=== PATIENT | female | born 1980 | race Caucasian/White ===

== ENCOUNTER 2016-10-26 04:50 | Emergency (ER) | payer OTHER ==
[~2016-10-26] VITALS: Ht 160 cm; Wt 122.6 kg
[~2016-10-26 04:50] MED LIST: ACYCLOVIR200 MG PO; AMMONIUM LACTATE12 % EX; AMOXICILLIN875 MG OR; AMPICILLIN500 MG PO; ANUCORT-HC25 MG RE; APRI PO; ARIPIPRAZOLE5 MG PO; B6 NATURAL100 MG PO; BP MED; BUPROPION HCL150 M2 OR; BUPROPION150 M3 PO; BUPROPION150 MG PO; BUSPIRONE5 MG PO; CELEXA40 M1 PO; CLARITHROMYC500 M2 PO; COMPAZINE10 MG OR; FOLIC ACID PO; FUROSEMIDE20 MG PO; HYDROCHLORO25 MG/TAB PO; IBUPROFEN600 MG OR; INDOMETHACIN50 MG PO; K-TAB20 MEQ PO; LEVOTHYROXIN100 MC1 PO; LEVOTHYROXIN125 MC1 OR; LEVOTHYROXIN125 MCG PO; LEVOTHYROXIN50 MC1 PO; LISINOP/HCTZ1 TA1 PO; LISINOPRIL20 MG PO; MAGNESIUM 250 M1 TAB PO; METFORMIN500 M1 PO; METFORMIN500 MG PO; MINIPRESS2 M1 PO; MIRCETTE28 DAY PO; OCELLA1 TAB PO; PENICILLN VK500 M1 OR; PERCOCET 5/325M1 TAB PO; PREVACID30 M2 PO; PREVACID30 M3 PO; PRILOSEC20 MG PO; PRILOSEC40 MG PO; RESTASIS0.05 % OP; SERTRALINE50 MG PO; SYSTANE BAL OP; TEMAZEPAM30 MG PO; TOPAMAX50 MG PO; TOPIRAMATE50 MG PO; ULTRAM50 M1 PO; ULTRAM50 MG OR; VITAMIN D2000 UNI1 OR; VITAMIN D35000 UNIT PO; ZOFRAN ODT4 MG PO; ZOFRAN8 MG OR
[2016-10-26 05:15] VITALS: BP 117/74
== END 2016-10-26 05:15 | disposition home or self-care (01) | DRG 156 ==
LOC: ED 04:50
DX: T16.1XXA Foreign body in right ear, initial encounter (principal); I10 Essential (primary) hypertension; E11.9 Type 2 diabetes mellitus without complications; E03.9 Hypothyroidism, unspecified; X58.XXXA Exposure to other specified factors, initial encounter

== ENCOUNTER 2017-02-19 14:23 | Emergency (ER) | payer OTHER ==
[~2017-02-19] VITALS: Ht 160 cm; Wt 144.0 kg
[~2017-02-19 14:23] MED LIST changes: +HM OMEPRAZOLE20 MG PO
[2017-02-19] MEDS ORDERED: BACTRIM DS1 TAB PO (14:39)
[2017-02-19] MEDS ORDERED: LEVOTHYROXIN150 MC1 PO (14:46)
[2017-02-19] MEDS ORDERED: INDOCIN50 MG/CAP PO (14:48)
[2017-02-19] MEDS ORDERED: CARAFATE1 GM PO (14:49)
[2017-02-19 14:50] VITALS: BP 133/88
[2017-02-19] MEDS ORDERED: VYVANSE60 MG PO (14:51)
[2017-02-19] MEDS ORDERED: ROPINIROLE HCL1 MG PO (15:04)
[2017-02-19] MEDS ORDERED: K-DUR/KLOR-CON20 MEQ PO (15:06)
[2017-02-19] MEDS ORDERED: PROPRANOLOL HCL80 M1 PO (15:07)
[2017-02-19] MEDS ORDERED: LISINOP/HCTZ1 TA1 PO (15:08)
[2017-02-19] MEDS ORDERED: [UNRECOGNIZED DRUG - OTHER] PO (15:08)
== END 2017-02-19 14:50 | disposition home or self-care (01) | DRG 603 ==
LOC: ED 14:23
PROC: 0H9DXZX Drainage of Right Lower Arm Skin, External Approach, Diagnostic (ICD-10-PCS; principal; 2017-02-19)
DX: L02.413 Cutaneous abscess of right upper limb (principal)

== ENCOUNTER → 2017-12-24 | Outpatient (REF) | payer MEDICARE, MEDICAID ==
[~2017-12-24] MED LIST changes: +BACTRIM DS1 TAB PO; +CARAFATE1 GM PO; +FIORICET 50-3001 CAP; +HYDROCODONE/ACE1 TAB PO; +IMITREX50 MG PO; +INDOCIN50 MG/CAP PO; +K-DUR/KLOR-CON20 MEQ PO; +LATUDA60 MG; +LEVOTHYROXIN150 MC1 PO; +PROPRANOLOL HCL80 M1 PO; +ROPINIROLE HCL1 MG PO; +TOPAMAX100 M1; +VYVANSE60 MG PO; +[UNRECOGNIZED DRUG - OTHER] PO
[2017-12-24 10:09] LABS: ANION GAP 13 (6-22 (CALC)); BUN 22 mg/dL (7-17); BUN/CREATININE RATIO 21 (12-20 (CALC)); CARBON DIOXIDE 25 mmol/l (22-30); CHLORIDE 108 mmol/l (95-108); GFR > 60 ML/MIN (>=60 (CALC)); GFR FOR AFR.AMER. > 60 ML/MIN (>=60 (CALC)); POTASSIUM 4.5 mmol/l (3.5-5.1); SODIUM 141 mmol/l (137-146)
== END | disposition home or self-care (01) ==
LOC: LAB 09:20
DX: E11.9 Type 2 diabetes mellitus without complications (principal); Z01.812 Encounter for preprocedural laboratory examination; K21.9 Gastro-esophageal reflux disease without esophagitis; Z11.59 Encounter for screening for other viral diseases; Z13.9 Encounter for screening, unspecified; Z98.84 Bariatric surgery status; Z79.899 Other long term (current) drug therapy

== ENCOUNTER 2018-11-19 17:05 | Emergency (ER) | payer MEDICARE, MEDICAID ==
[~2018-11-19] VITALS: Ht 160 cm; Wt 160.0 kg
[~2018-11-19 17:05] MED LIST changes: +INDOCIN25 MG PO; -INDOCIN50 MG/CAP PO; -LATUDA60 MG; +LATUDA60 MG PO
[2018-11-19] MEDS ORDERED: GABAPENTIN100 MG PO (18:06)
[2018-11-19] MEDS ORDERED: VOLTAREN - GENE75 MG PO (20:10)
[2018-11-19 20:18] VITALS: BP 140/79
== END 2018-11-19 20:28 | disposition home or self-care (01) ==
LOC: ED 17:05
DX: S39.012A Strain of muscle, fascia and tendon of lower back, initial encounter (principal); S80.212A Abrasion, left knee, initial encounter; S70.01XA Contusion of right hip, initial encounter; I10 Essential (primary) hypertension; E11.42 Type 2 diabetes mellitus with diabetic polyneuropathy; E03.9 Hypothyroidism, unspecified; W10.9XXA Fall (on) (from) unspecified stairs and steps, initial encounter; Y92.009 Unspecified place in unspecified non-institutional (private) residence as the place of occurrence of the external cause; Z79.84 Long term (current) use of oral hypoglycemic drugs

== ENCOUNTER 2019-12-27 18:21 | Observation (INO) | payer MEDICARE, MEDICAID ==
[~2019-12-27] VITALS: Ht 162.6 cm; Wt 160.0 kg
[~2019-12-27 18:21] MED LIST changes: +GABAPENTIN100 MG PO; +VOLTAREN - GENE75 MG PO
--- NOTE | 2019-12-27 18:22 | NUR ---
PT TO ROOM VIA WC IN NO ACUTE DISTRESS, TRANSFERED SELF ONTO STRETCHER
--- NOTE | 2019-12-27 18:40 | NUR ---
INITIATED IV, EKG COMPLETED AND PT UPDATED ON TESTS ADN POC. SKIN PWD. PT C/O PAIN AND SWELLING TO LT FOOT. PT DENIES INJURY AND PEDAL PULSES PRESENT BILAT. NO REDNESS OR DISCOLORATION. BILAT FEET WARM TO TOUCH. BILAT PEDAL PULSES MARKED.
--- NOTE | 2019-12-27 18:55 | NUR ---
REPORT TO DHARA MOLINA RN. UPDATED THAT MED REC HAS NOT BEEN COMPLETED.
[2019-12-27 19:13] LABS: HEMATOCRIT 33.2 % (37.0-47.0); HEMOGLOBIN 10.6 g/dl (12.0-16.0); IMMATURE GRANULOCYTES 0.5 % (0.0-5.0); MEAN CORPUSCULAR HGB 28.2 pG CALC (26.0-32.0); MEAN CORPUSCULAR HGB CONC 31.9 g/dL CAL (32.0-36.0); NEUT# 5.88 thou/uL (2.00-7.15); RED BLOOD COUNT 3.76 mill/uL (4.20-5.60); RED CELL DISTRI WIDTH 16.5 % (11.5-15.5)
[2019-12-27] MEDS ORDERED: LIPITOR20 M1 PO (19:13)
[2019-12-27] MEDS ORDERED: TYLENOL # 31 TA1 PO (19:15)
[2019-12-27 19:16] LABS: MEAN CELL VOLUME 88.3 fL CALC (80.0-100.0)
[2019-12-27] MEDS ORDERED: FLUCONAZOLE150 MG PO (19:16)
[2019-12-27] MEDS ORDERED: PROTONIX40 M2 PO (19:17)
[2019-12-27] MEDS ORDERED: OZEMPIC2 MG/1.5 M IM (19:19)
[2019-12-27 19:38] LABS: ALBUMIN 4.1 g/dL (3.2-5.0); ANION GAP 12 (6-22 (CALC)); BUN 16 mg/dL (7-17); BUN/CREATININE RATIO 15 (12-20 (CALC)); CARBON DIOXIDE 24 mmol/l (22-30); CHLORIDE 107 mmol/l (95-108); CREATININE 1.1 mg/dL (0.5-1.0); GFR 55 ML/MIN (>=60 (CALC)); GFR FOR AFR.AMER. > 60 ML/MIN (>=60 (CALC)); POTASSIUM 4.1 mmol/l (3.5-5.1); SGOT/AST 24 u/l (14-36); SODIUM 138 mmol/l (137-146)
[2019-12-27 19:39] LABS: BILIRUBIN, TOTAL 0.5 mg/dL (0.0-1.4)
[2019-12-27 19:40] LABS: ALKALINE PHOSPHATASE 56 u/l (38-126)
--- NOTE | 2019-12-27 19:42 | NUR ---
PT. STATES HER CP CONT. AT A 5 ON A SCAL OF 1-10.
--- NOTE | 2019-12-27 20:08 | NUR ---
MD IN ROOM TO MAKE PT. AWARE OF ADMISSION.
[2019-12-27 20:37] LABS: TSH, 3RD GENERATION 9.01 uIU/mL (0.47 - 4.68)
[2019-12-27 20:44] LABS: URINE BILIRUBIN - DIPSTICK NEGATIVE (NEGATIVE); URINE BLOOD DIPSTICK NEGATIVE (NEGATIVE); URINE COLOR YELLOW; URINE GLUCOSE - DIPSTICK NEGATIVE (NEGATIVE); URINE KETONE TRACE mg/dL (NEGATIVE); URINE LEUK ESTERASE NEGATIVE (NEGATIVE); URINE NITRITE - DIPSTICK NEGATIVE (Negative); URINE PH 6.5 (4.5-8.0); URINE PROTEIN - DIPSTICK NEGATIVE (NEG-TRACE); URINE UROBILINOGEN - DIPSTICK 0.2 E.U./dL (0.2)
--- NOTE | 2019-12-27 21:28 | NUR ---
Admission Note Report Given to: NEGAR HARRY Transported by: Wheelchair X Stretcher Transported with: C Nurse Transporter X Patent IV O2 X Commercial Account Officer Location: X ICU [facility]
--- NOTE | 2019-12-27 22:20 | NUR ---
PT. TAKEN TO ICU VIA STRETCHER, NO C/O AT THIS TIME.
[2019-12-27 23:00] VITALS: BP 125/66
--- NOTE | 2019-12-27 23:00 | NUR ---
- ADMISSION ASSESSMENT COMPLETED. PT. REPORTS CP IS LESS AND ONLY A 2/10 AND REPORTS IT MORE PRESSURE THAN PAIN; RELAXTION TECHNIQUES IMPLEMENTED. ORIENTED TO CALL LIGHT, ROOM, AND POC; VERBALIZES UNDERSTANING; GRINDER GEAR IN PLACE AND READING SR. VSS. PT. REPORTS SHE WEARS BIPAP AT NIGHT AND DOES NOT HAVE IT WITH HER; PT. IN AGREEMENT TO APPLY O2 FOR THE NIGHT; O2 @2LITERS/MIN PER NC; PRN SONATA GIVEN TO ASSIST WITH SLEEP; SNACK PROVIDED. ENCOURAGED TO CALL FOR ANY NEEDS.
--- NOTE | 2019-12-28 00:39 | NUR ---
PHLEBOTOMY IN AT BEDSIDE OBTAINING ORDERED TROPONIN.
--- NOTE | 2019-12-28 02:29 | NUR ---
PT. C/O RLE CRAMPING; MEDICATED WITH ORDERED PRN TYLENOL AND ORANGE JUICE PROVIDED. WILL REASSESS. PEDAL PULSES PRESENT.
[2019-12-28 03:30] VITALS: BP 106/76
--- NOTE | 2019-12-28 04:00 | NUR ---
RESTING IN BED WITH NO DISTRESS NOTED; DENIES NEEDS/PAIN.ENCOURAGED TO CALL FOR ANY NEEDS.
[2019-12-28 05:29] LABS: CHOLESTEROL HDL RATIO 3.1 (<4.4 (CALC))
--- NOTE | 2019-12-28 07:15 | NUR ---
REPORT RECEIVED FROM PIERO BILLS;PT TO BE TRANSFERRED TO MED/SURG ROOM 261.
--- NOTE | 2019-12-28 07:20 | NUR ---
PT ARRIVED TO MED/SURG ROOM 261 IN STABLE CONDITION VIA WHEELCHAIR;PT A&O X3, ORIENTED TO ROOM AND CALL LIGHT SYSTEM;PT AMBULATED TO BEDSIDE WITH A STEADY GAIT;WT AND VS OBTAINED BY LIZZIE GUERRERO;PT DENIES ANY CURRENT PAIN OR DISCOMFORTS,PAIN SCALE AND REPORTING EDUCATED;RESPIRATIONS EVEN AND UNLABORED ON RA,CLEAR/DIMINISHED LUNG SOUNDS;ABDOMEN DISTENDED/SOFT ON PALPATION AND ACTIVE IN ALL 4 QUADRANTS;WEAK PEDAL PULSES WITH +1 EDEMA TO BLE,WORSE ON THE LEFT;SKIN INTACT;ACCUCHECK 81, NO COVERAGE NEEDED;#20G TO LAC FLUSHED AND PATENT,SITE APPEARS HEALTHY;PT DENIES ANY CURRENT NEEDS AT THIS TIME;ENCOURAGED TO CALL FOR ASSISTANCE IF NEEDED;FALL PRECAUTIONS IN PLACE WITH BED IN THE LOWEST POSITION AND CALL LIGHT IN REACH;WILL CONTINUE TO MONITOR
[2019-12-28 07:44] VITALS: BP 128/80
--- NOTE | 2019-12-28 08:24 | NUR ---
AT BEDSIDE DISCUSSING POC WITH PT.
[2019-12-28] MEDS ORDERED: LOPRESSOR25 M1 PO (11:32)
--- NOTE | 2019-12-28 11:40 | NUR ---
PT RESTING AT BEDSIDE EATING LUNCH;RESPIRATIONS EVEN AND UNLABORED ON RA;PT DENIES ANY CURRENT PAIN OR NEEDS;TELE MONITORING IN PLACE;IV SITE PATENT;ACCUCHECK 119, NO COVERAGE NEEDED;PT AWARE OF PENDING D/C AWAITING ORDERS;ASSESSMENT REMAINS UNCHANGED AT THIS TIME;ENCOURAGED TO CALL FOR ASSISTANCE IF NEEDED;CALL LIGHT IN REACH;WILL CONTINUE TO MONITOR
[2019-12-28 11:50] VITALS: BP 134/85
--- NOTE | 2019-12-28 12:20 | NUR ---
ALL DISCHARGE INSTRUCTIONS PROVIDED AT THIS TIME;RX FOR LOPRESSOR PROVIDED AND PT INSTRUCTED TO TAKE DIRECTED, CONTINUE ALL REGULAR HOME MEDICATIONS AND F/U WITH PCP;PT VERBALIZES UNDERSTANDING;IV SITE REMOVED WITH CATHETER INTACT AND TELE MONITORING D/C;PT DENIES ANY ADDITIONAL QUESTIONS OR NEEDS;WHEELCHAIR TO BE PROVIDED FOR D/C HOME;FAMILY TO TRANSPORT PT HOME;WILL CONTINUE TO MONITOR
--- NOTE | 2019-12-28 12:28 | NUR ---
Discharge instructions given. Patient verbalizes understanding of same. Discharged in stable condition via Wheelchair to Home with family. All belongings sent with pt. PT TRANSPORTED TO [facility] IN STABLE CONDITION VIA WHEELCHAIR ACCOMPANIED BY LIZZIE GODDARD;ALL BELONGINGS LEFT WITH PT.
--- NOTE | 2019-12-28 15:34 | NUR ---
PT HAD CONSENTED TO RECEIVE PNEUMOCOCCAL VAX, PT RECEIVED PPSV23 IN 2018, NO FURTHER INDICATED TIL OVER 65. PT ALSO CONSENTED FOR FLU SHOT, BUT RECEIVED 12/15/2019.
[2020-01-09] MEDS ORDERED: METOPROL TAR25 MG PO (21:06)
[2020-01-10] MEDS ORDERED: MECLIZINE25 MG PO (10:29)
== END 2019-12-28 12:28 | disposition home or self-care (01) ==
LOC: ED 18:21 → ED-I 18:49 → ED 18:49 → ED-I 20:17 → ED 20:45 → ICU 20:46 → MS2 20:46
PROVIDERS: Emergency Medicine; Family Medicine; ADMIT Internal Medicine; ATTEND Internal Medicine
DX: R07.9 Chest pain, unspecified (principal); R00.2 Palpitations; I10 Essential (primary) hypertension; E11.42 Type 2 diabetes mellitus with diabetic polyneuropathy; E78.5 Hyperlipidemia, unspecified; E03.9 Hypothyroidism, unspecified; F32.9 Major depressive disorder, single episode, unspecified; F41.9 Anxiety disorder, unspecified; E66.01 Morbid (severe) obesity due to excess calories; Z68.44 Body mass index [BMI] 60.0-69.9, adult; Z20.828 Contact with and (suspected) exposure to other viral communicable diseases; Z79.84 Long term (current) use of oral hypoglycemic drugs
CPT/HCPCS: Q9967

== ENCOUNTER 2020-04-18 03:41 | Emergency (ER) | payer MEDICARE, MEDICAID ==
[~2020-04-18] VITALS: Ht 160 cm; Wt 154.1 kg
[~2020-04-18 03:41] MED LIST changes: +FLUCONAZOLE150 MG PO; +LIPITOR20 M1 PO; +LOPRESSOR25 M1 PO; +MECLIZINE25 MG PO; +METOPROL TAR25 MG PO; +OZEMPIC2 MG/1.5 M IM; +PROTONIX40 M2 PO; +TYLENOL # 31 TA1 PO
[2020-04-18] MEDS ORDERED: AMBIEN5 MG PO (04:01)
[2020-04-18] MEDS ORDERED: XANAX1 MG PO (04:01)
[2020-04-18 04:13] LABS: HEMATOCRIT 34.4 % (37.0-47.0); HEMOGLOBIN 10.6 g/dl (12.0-16.0); IMMATURE GRANULOCYTES 0.3 % (0.0-5.0); MEAN CELL VOLUME 91.7 fL CALC (80.0-100.0); MEAN CORPUSCULAR HGB 28.3 pG CALC (26.0-32.0); MEAN CORPUSCULAR HGB CONC 30.8 g/dL CAL (32.0-36.0); NEUT# 6.9 thou/uL (2.00-7.15); RED BLOOD COUNT 3.75 mill/uL (4.20-5.60); RED CELL DISTRI WIDTH 13.5 % (11.5-15.5)
[2020-04-18 04:15] LABS: URINE BILIRUBIN - DIPSTICK NEGATIVE (NEGATIVE); URINE BLOOD DIPSTICK MODERATE (NEGATIVE); URINE COLOR YELLOW; URINE GLUCOSE - DIPSTICK NEGATIVE (NEGATIVE); URINE KETONE NEGATIVE (NEGATIVE); URINE PROTEIN - DIPSTICK NEGATIVE (NEG-TRACE); URINE SPECIFIC GRAVITY 1.015; URINE UROBILINOGEN - DIPSTICK 0.2 E.U./dL (0.2)
[2020-04-18 04:24] LABS: URINE LEUK ESTERASE MODERATE (NEGATIVE)
[2020-04-18 04:25] LABS: URINE EPITHELIAL CELLS MODERATE EPI/hpf (0-FEW); URINE NITRITE - DIPSTICK NEGATIVE (Negative); URINE RBC 25-50 RBC/hpf (0-5); URINE WBC 50-100 WBC/hpf (0-5)
[2020-04-18 04:26] LABS: URINE BACTERIA MODERATE hpf; URINE YEAST MODERATE hpf
[2020-04-18 04:31] LABS: ACT PARTIAL THROMBO TIME 23.3 SECONDS (20.0-32.5); ALBUMIN 3.5 g/dL (3.2-5.0); ALKALINE PHOSPHATASE 56 u/l (38-126); ANION GAP 10 (6-22 (CALC)); BILIRUBIN, TOTAL 0.4 mg/dL (0.0-1.4); BUN 15 mg/dL (7-17); BUN/CREATININE RATIO 14 (12-20 (CALC)); CARBON DIOXIDE 22 mmol/l (22-30); CHLORIDE 107 mmol/l (95-108); ETHYL ALCOHOL 0 mg/dl (0-30); GFR > 60 ML/MIN (>=60 (CALC)); GFR FOR AFR.AMER. > 60 ML/MIN (>=60 (CALC)); LIPASE 236 u/l (23-300); POTASSIUM 4.1 mmol/l (3.5-5.1); PROTHROMBIN TIME 9.5 SECONDS (9.0-12.5); SGOT/AST 20 u/l (14-36); SODIUM 135 mmol/l (137-146); TOTAL PROTEIN 6.4 g/dL (6.3-8.2)
[2020-04-18 08:20] VITALS: BP 153/95
== END 2020-04-18 08:20 | disposition designated cancer center or children's hospital (05) ==
LOC: ED 03:41
DX: T42.6X2A Poisoning by other antiepileptic and sedative-hypnotic drugs, intentional self-harm, initial encounter (principal); T42.4X2A Poisoning by benzodiazepines, intentional self-harm, initial encounter; S61.512A Laceration without foreign body of left wrist, initial encounter; F31.9 Bipolar disorder, unspecified; I10 Essential (primary) hypertension; E11.42 Type 2 diabetes mellitus with diabetic polyneuropathy; E03.9 Hypothyroidism, unspecified; F41.9 Anxiety disorder, unspecified; R82.71 Bacteriuria; X78.8XXA Intentional self-harm by other sharp object, initial encounter; Z79.84 Long term (current) use of oral hypoglycemic drugs; Z20.822 Contact with and (suspected) exposure to COVID-19